=== PATIENT | female | born 1945 | race Caucasian/White ===

== ENCOUNTER 2016-10-23 18:02 | Emergency (ER) | payer MEDICARE ==
[2016-10-23 18:59] VITALS: BP 146/66; PULSE 101; RESP 18; TEMP 97.6
[2016-10-23] MEDS ORDERED: ACETAMINOPHEN TAB 500 MG TAB PO STA (19:33)
--- NOTE | 2016-10-23 19:48 | XR ---
Lumbosacral spine HISTORY: Low back pain 5 views of the lumbosacral spine There is a mild levoscoliosis centered at L2. No spondylolysis or spondylolisthesis. Lumbar vertebral bodies show preserved height. Bone mineralization is reduced. Loss of disc height L3-4. Sclerosis pr esent in the posterior elements. Multilevel spondylosis present. IMPRESSION: Degenerative disc disease, facet arthropathy, osteopenia.
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
== END 2016-10-23 20:36 | disposition home or self-care (01) ==
LOC: EC 18:02
DX: S39.012A Strain of muscle, fascia and tendon of lower back, initial encounter (principal); M51.36 Other intervertebral disc degeneration, lumbar region; M85.80 Other specified disorders of bone density and structure, unspecified site; M12.88 Other specific arthropathies, not elsewhere classified, other specified site; X50.9XXA Other and unspecified overexertion or strenuous movements or postures, initial encounter; Y93.42 Activity, yoga; E11.9 Type 2 diabetes mellitus without complications; E07.9 Disorder of thyroid, unspecified; Z87.891 Personal history of nicotine dependence; Z79.899 Other long term (current) drug therapy
CPT/HCPCS: 72110; 99283

== ENCOUNTER → 2018-07-06 | Outpatient (CLI) | payer MEDICARE ==
--- NOTE | 2018-07-09 10:10 | MM ---
Reason for exam: screening (asymptomatic). Last mammogram was performed 2 years ago. History: Patient is postmenopausal. Physical Findings: A clinical breast exam by your physician is recommended on an annual basis and results should be correlated with mammographic findings. MG 3D Screening Mammo W/Cad Bilateral CC and MLO view(s) were taken. Prior study comparison: July 01, 2016, bilateral MG 3d screening mammo w/cad. The breast tissue is heterogeneously dense. This may lower the sensitivity of mammography. Developing asymmetry right inferior CC view. This finding is changed when compared with previous exams. ASSESSMENT: Incomplete: need additional imaging evaluation, BI-RAD 0 RECOMMENDATION: Special view mammogram of the right breast. If lesion persists on supplemental views, image directed ultrasound is recommended. [facility] will attempt to contact patient to return for supplemental views and ultrasound if indicated.
== END | disposition home or self-care (01) ==
LOC: RADMAMWWP 15:38
PROVIDERS: ATTEND Family Medicine
DX: Z12.31 Encounter for screening mammogram for malignant neoplasm of breast (principal)
CPT/HCPCS: 77063; 77067

== ENCOUNTER → 2018-07-11 | Outpatient (CLI) | payer MEDICARE ==
--- NOTE | 2018-07-12 10:30 | MM ---
Reason for exam: additional evaluation requested from abnormal screening. Last mammogram was performed less than 1 month ago. History: Patient is postmenopausal. Physical Findings: Patient did not receive a breast exam. MG 3D Work Up W/Cad RT Spot compression CC, spot compression MLO, and LM view(s) were taken of the right breast. Prior study comparison: July 06, 2018, bilateral MG 3d screening mammo w/cad. July 01, 2016, bilateral MG 3d screening mammo w/cad. The breast tissue is heterogeneously dense. This may lower the sensitivity of mammography. Finding: There are typically benign diffuse/scattered calcifications in the right breast. The previous abnormality appears as fibroglandular tissue on additional views. ASSESSMENT: Benign, BI-RAD 2 RECOMMENDATION: Return to routine screening mammogram schedule for both breasts.
== END ==
LOC: RADMAMWWP 14:24
PROVIDERS: ATTEND Family Medicine
DX: R92.8 Other abnormal and inconclusive findings on diagnostic imaging of breast (principal)
CPT/HCPCS: 77065; G0279; 77061

== ENCOUNTER 2024-03-08 15:50 | Emergency (ER) | payer MEDICARE ==
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
[2024-03-08 17:30] VITALS: BP 171/86; PULSE 100; RESP 18; TEMP 98
== END 2024-03-08 18:23 | disposition home or self-care (01) ==
LOC: EC 15:50
DX: B86 Scabies (principal)
CPT/HCPCS: 99282